=== PATIENT | male | born 1955 | race Caucasian/White ===

== ENCOUNTER 2020-03-03 19:58 | Emergency (ER) | payer OTHER, MEDICAID ==
[~2020-03-03] VITALS: Ht 177.8 cm; Wt 104.3 kg
[2020-03-03 20:02] VITALS: Ht 177.8 cm; Wt 104.3 kg
[2020-03-03 21:13] LABS: BASOPHIL % 0.4 % (0-2); PLATELET COUNT 195 x10^3mcL (130-400); RED CELL DISTRIBUTION WIDTH 14.8 % (11.5-14.5)
[2020-03-03 21:28] LABS: CARBON DIOXIDE 27.6 mmol/L (21-32); CREATININE SERUM 2.2 mg/dL (0.7-1.3); POTASSIUM SERUM 3.9 mmol/L (3.5-5.1)
[2020-03-03 21:30] LABS: ALBUMIN 3.7 g/dL (3.4-5.0); BILIRUBIN TOTAL 0.87 mg/dL (0.20-1.00); TOTAL PROTEIN, SERUM 7.3 g/dL (6.4-8.2)
[2020-03-03 23:53] VITALS: BP 128/74
== END 2020-03-03 23:53 | disposition home or self-care (01) ==
LOC: ED 19:58
PROVIDERS: Emergency Medicine
DX: R06.6 Hiccough (principal); E86.0 Dehydration
CPT/HCPCS: Q0092; Q0161